=== PATIENT | male | born 1995 | race Caucasian/White ===

== ENCOUNTER 2018-05-30 14:35 | Emergency (ER) | payer OTHER ==
[2018-05-30] MEDS ORDERED: LORAZEPAM 1 MG TABLET PO ONE (15:07)
--- NOTE | 2018-05-30 15:07 | ER Document Report ---
ED Psych Disorder / Suicide - General Chief Complaint: Suicidal Ideation Stated Complaint: SUICIDAL IDEATION Time Seen by Provider: 05/30/18 14:54 Notes: Chief complaint: Suicidal History of complain:( obtained from----patient) 23 years old male presents today with suicidal ideation and depression. Suffering from a week. Broke up with his girlfriend and started to feel depressed and everything else around him was going downhill. He was feeling that there is no worth living anymore. He was thinking of many ways, but did not have any definite plan. Onset: Gradual Duration: About a week Severity: Severe Quality: Suicidal Context: Breakup with girlfriend Exacerbating factor and relieving factors: None REVIEW OF SYSTEMS: CONSTITUTIONAL : Denies fever, chills, or sweats. Denies recent illness. EENT: Denies eye, ear, throat, or mouth pain or symptoms. Denies nasal or sinus congestion or discharge. Denies throat, tongue, or mouth swelling or difficulty swallowing. CARDIOVASCULAR: Denies chest pain. Denies palpitations or racing or irregular heart beat. Denies ankle edema. RESPIRATORY: Denies cough, cold, or chest congestion. Denies shortness of breath, difficulty breathing, or wheezing. GASTROINTESTINAL: Denies distention. Denies nausea, vomiting, or diarrhea. Denies blood in vomitus, stools, or per rectum. Denies black, tarry stools. Denies constipation. GENITOURINARY: Denies difficulty urinating, painful urination, burning, frequency, blood in urine, or discharge. FEMALE GENITOURINARY: Denies vaginal bleeding, heavy or abnormal periods, irregular periods. Denies vaginal discharge or odor. MUSCULOSKELETAL: Denies back or neck pain or stiffness. Denies joint pain or swelling. SKIN: Denies rash, lesions or sores. HEMATOLOGIC : Denies easy bruising or bleeding. LYMPHATIC: Denies swollen, enlarged glands. NEUROLOGICAL: Denies confusion or altered mental status. Denies passing out or loss of consciousness. Denies dizziness or lightheadedness. Denies headache. Denies weakness or paralysis or loss of use of either side. Denies problems with gait or speech. Denies sensory loss, numbness, or tingling. Denies seizures. PSYCHIATRIC: Denies anxiety or stress. Denies depression, suicidal ideation, or homicidal ideation. ALL OTHER SYSTEMS REVIEWED AND NEGATIVE. PHYSICAL EXAMINATION: GENERAL: Well-appearing, well-nourished and in no acute distress. HEAD: Atraumatic, normocephalic. EYES: Pupils equal round and reactive to light, extraocular movements intact, conjunctiva are normal. ENT: Nares patent, oropharynx clear without exudates. Moist mucous membranes. NECK: Normal range of motion, supple without lymphadenopathy LUNGS: Breath sounds clear to auscultation bilaterally and equal. No wheezes rales or rhonchi. HEART: Regular rate and rhythm without murmurs ABDOMEN: Soft, nontender, nondistended abdomen. No guarding, no rebound. No masses appreciated. Examination of genitals-deferred Musculoskeletal: Normal range of motion, no pitting or edema. No cyanosis. NEUROLOGICAL: Cranial nerves grossly intact. Normal speech, normal gait. Normal sensory, motor exams PSYCH: Depressed, suicidal, crying SKIN: Warm, Dry, normal turgor, no rashes or lesions noted. Dictation was performed using [employer] voice recognition software TRAVEL OUTSIDE OF THE [place] IN LAST 30 DAYS: No - HPI Notes: Dictated - Related Data Allergies/Adverse Reactions: No Known Allergies Allergy (Verified 05/30/18 14:58) Past Medical History - Social History Smoking Status: Never Smoker Frequency of alcohol use: None Drug Abuse: None Lives with: Alone Family History: Reviewed & Not Pertinent Patient has suicidal ideation: Yes Patient has homicidal ideation: No Renal/ Medical History: Denies: Hx Peritoneal Dialysis Review of Systems - Review of Systems Notes: Dictated Physical Exam - Vital signs Vitals: Temp Pulse Resp BP Pulse Ox 99.5 F 74 16 147/85 H 100 05/30/18 14:42 05/30/18 14:42 05/30/18 14:42 05/30/18 14:42 05/30/18 14:42 - Notes Notes: Dictated Course - Vital Signs Vital signs: Temp Pulse Resp BP Pulse Ox 99.5 F 74 16 147/85 H 100 05/30/18 14:42 05/30/18 14:42 05/30/18 14:42 05/30/18 14:42 05/30/18 14:42 Discharge - Discharge Clinical Impression: Suicidal behavior Qualifiers: Attempted self-injury: without attempted self-injury Qualified Code(s): R46.89 - Other symptoms and signs involving appearance and behavior Depression (emotion) Qualifiers: Depression Type: major depressive disorder Major depression recurrence: single episode Active/Remission status: currently active Major depression episode severity: severe Psychotic features: without psychotic features Qualified Code(s ): F32.2 - Major depressive disorder, single episode, severe without psychotic features
[2018-05-30 16:17] LABS: ABSOLUTE LYMPHOCYTES (AUTO) 1.4 10^3/uL (0.5-4.7); ABSOLUTE MONOCYTES (AUTO) 0.5 10^3/uL (0.1-1.4); BASOPHILS % (AUTO) 0.6 % (0-2); EOSINOPHILS % (AUTO) 0.6 % (0-6); HEMATOCRIT 43.6 % (37.9-51.0); HEMOGLOBIN 15.3 g/dL (13.5-17.0); LYMPHOCYTES % (AUTO) 23.7 % (13-45); MEAN CORPUSCULAR HEMOGLOBIN 29.9 pg (27.0-33.4); MEAN CORPUSCULAR HGB CONC 35.1 g/dL (32.0-36.0); MEAN CORPUSCULAR VOLUME 85 fl (80-97); MONOCYTES % (AUTO) 8.5 % (3-13); PLATELET COUNT 199 10^3/uL (150-450); RED BLOOD COUNT 5.12 10^6/uL (4.35-5.55); RED CELL DISTRIBUTION WIDTH 12.9 % (11.5-14.0); SEGMENTED NEUTROPHILS % (AUTO) 66.6 % (42-78); TOTAL CELLS COUNTED % (AUTO) 100 %
--- NOTE | 2018-05-30 16:20 | ER Document Report ---
ED General - General Chief Complaint: Suicidal Ideation Stated Complaint: SUICIDAL IDEATION Time Seen by Provider: 05/30/18 14:54 TRAVEL OUTSIDE OF THE [place] IN LAST 30 DAYS: No - HPI Notes: Patient is a 23-year-old male with a history of depression who presents to the ED complaining of suicidal ideations over the last 4 days since a breakup with his girlfriend. Patient states that he had suicidal ideations and depression last year, but had been greatly improved until this recent breakup which set him back. Patient states that he has never had any planning and no previous attempts. He has not had any homicidal ideations were planning. He does not have any visual or auditory hallucinations. Patient is in the [employer] He is accompanied today by his father. He has not had any other recent illness. Denies any drug allergies. He has had a decreased p.o. intake over the last several days. No other concerns or complaints at this time. Denies any headache, fever, neck pain, changes in vision/speech/mentation/ hearing, URI, sore throat, chest pain, palpitations, syncope, cough, shortness of breath, wheeze, dyspnea, abdominal pain, nausea/vomiting/diarrhea, urinary retention, dysuria, hematuria, loss of control of bowel or bladder, numbness/ tingling, muscle paralysis/weakness, or rash. - Related Data Allergies/Adverse Reactions: No Known Allergies Allergy (Verified 05/30/18 14:58) Past Medical History - Social History Smoking Status: Never Smoker Frequency of alcohol use: None Drug Abuse: None Lives with: Alone Family History: Reviewed & Not Pertinent Patient has suicidal ideation: Yes Patient has homicidal ideation: No Renal/ Medical History: Denies: Hx Peritoneal Dialysis Review of Systems - Review of Systems -: Yes All other systems reviewed and negative Physical Exam - Vital signs Vitals: Temp Pulse Resp BP Pulse Ox 99.5 F 74 16 147/85 H 100 05/30/18 14:42 05/30/18 14:42 05/30/18 14:42 05/30/18 14:42 05/30/18 14:42 - Notes Notes: PHYSICAL EXAMINATION: GENERAL: Well-appearing, well-nourished and in no acute distress. HEAD: Atraumatic, normocephalic. EYES: Pupils equal round and reactive to light, extraocular movements intact, sclera anicteric, conjunctiva are normal. ENT: Nares patent and without discharge. oropharynx clear without exudates. No tonsilar hypertrophy or erythema. Moist mucous membranes. NECK: Normal range of motion, supple without lymphadenopathy LUNGS: Breath sounds clear to auscultation bilaterally and equal. No wheezes rales or rhonchi. HEART: Regular rate and rhythm without murmurs, rubs, gallops. ABDOMEN: Soft, nontender, nondistended abdomen. No guarding, no rebound. No masses appreciated. Normal bowel sounds present. No CVA tenderness bilaterally. Musculoskeletal: FROM to passive/active. Strength 5+/5. Extremities: No cyanosis, clubbing, or edema b/l. Peripheral pulses 2+. Capillary refill less than 3 seconds. NEUROLOGICAL: Cranial nerves grossly intact. Normal speech, normal gait. Normal sensory, motor exams PSYCH: Normal mood, normal affect. SKIN: Warm, Dry, normal turgor, no rashes or lesions noted. Course - Re-evaluation Re-evalutation: 05/30/18 16:18 Patient is an afebrile, well-hydrated, 23-year-old male who presents to the ED for suicidal ideations without planning. Vitals are acceptable without any significant tachycardia, tachypnea, or hypoxia. PE is otherwise unremarkable. Labs and EKG have been ordered. Patient is tolerating p.o. I difficulties and is nontoxic-appearing. I did review case with our psychology team who will evaluate the patient and will defer IVC at this time until after evaluation. Patient is in agreement with this plan. 05/30/18 18:18 Patient has been cleared by our psychology team and does not meet IVC criteria. They would like him to be placed on BuSpar as well as Celexa with a diagnosis of depression. Other direction per our mental health team. Patient is in agreement with plan. Recheck with your PCM in 3-5 days as well. Return to the ED with any worsening/concerning symptoms otherwise as reviewed in discharge. Patient is in agreement. - Vital Signs Vital signs: Temp Pulse Resp BP Pulse Ox 99.5 F 74 16 147/85 H 100 05/30/18 14:42 05/30/18 14:42 05/30/18 14:42 05/30/18 14:42 05/30/18 14:42 - Laboratory Result Diagrams: 05/30/18 15:30 05/30/18 15:30 Laboratory results interpreted by me: 05/30/18 05/30/18 15:30 15:30 Total Bilirubin 1.8 H ALT 18 L Urine Ketones TRACE H Urine Blood SMALL H Urine Urobilinogen 4.0 H Salicylates < 1.0 L Acetaminophen < 10 L Discharge - Discharge Clinical Impression: Suicidal behavior Qualifiers: Attempted self-injury: without attempted self-injury Qualified Code(s): R46.89 - Other symptoms and signs involving appearance and behavior Depression (emotion) Qualifiers: Depression Type: major depressive disorder Major depression recurrence: single episode Active/Remission status: currently active Major depression episode severity: severe Psychotic features: without psychotic features Qualified Code(s ): F32.2 - Major depressive disorder, single episode, severe without psychotic features Condition: Stable Disposition: HOME, SELF-CARE Instructions: Depression ([facility]) Additional Instructions: Maintain adequate fluid and food intake Take home medications as directed healthy diet Exercise regularly Monitor symptoms for any acute changes Recheck with your PCM in 3-5 days Keep f/u with mental health provider Return to the ED with any worsening symptoms and/or development of fever, headache, chest pain, palpitations, syncope, shortness of breath, trouble breathing, abdominal pain, n/v/d, blood in stool/urine, loss of control of bowel /bladder, urinary retention, muscle weakness/paralysis, numbness/tingling, suicidal/homicidal thoughts/ideations/planning, or other worsening symptoms that are concerning to you. Prescriptions: Buspirone HCl [Buspar 10 mg Tablet] 10 mg PO QHS #7 tablet Citalopram Hydrobromide [Celexa 20 mg Tablet] 20 mg PO DAILY #7 tablet Forms: Elevated Blood Pressure Referrals: [facility] [Provider Group] - Follow up as needed
[2018-05-30 16:27] LABS: ALANINE AMINOTRANSFERASE 18 U/L (21-72); ALKALINE PHOSPHATASE 48 U/L (38-126); ANION GAP 14 (5-19); ASPARTATE AMINO TRANSFERASE 22 U/L (17-59); BILIRUBIN,DIRECT 0.2 mg/dL (0.0-0.4); BILIRUBIN,TOTAL 1.8 mg/dL (0.2-1.3); BLOOD UREA NITROGEN 15 mg/dL (7-20); CALCIUM 9.9 mg/dL (8.4-10.2); CARBON DIOXIDE 29 mmol/L (22-30); CHLORIDE 100 mmol/L (98-107); GLUCOSE 101 mg/dL (75-110); POTASSIUM 3.7 mmol/L (3.6-5.0); SODIUM 143.4 mmol/L (137-145); TOTAL PROTEIN 7.8 g/dL (6.3-8.2)
[2018-05-30 16:28] LABS: ACETAMINOPHEN < 10 ug/mL (10-30); ALCOHOL < 10 mg/dL (NONE DETECTED); APPEARANCE,URINE SLIGHTLY-CLOUDY; BILIRUBIN,URINE NEGATIVE (NEGATIVE); COLOR,URINE AMBER; GLUCOSE, URINE NEGATIVE (NEGATIVE); KETONES,URINE TRACE mg/dL (NEGATIVE); LEUKOCYTE ESTERASE,URINE NEGATIVE (NEGATIVE); NITRITE,URINE NEGATIVE (NEGATIVE); PROTEIN,URINE NEGATIVE (NEGATIVE); SALICYLATE < 1.0 mg/dL (2.0-20.0); URINE SPECIFIC GRAVITY 1.029
[2018-05-30 16:43] LABS: URINE AMPHETAMINES SCREEN NEGATIVE; URINE BARBITURATES SCREEN NEGATIVE; URINE BENZODIAZEPINES SCREEN NEGATIVE; URINE COCAINE SCREEN NEGATIVE; URINE MARIJUANA (THC) SCREEN NEGATIVE; URINE METHADONE SCREEN NEGATIVE; URINE PHENCYCLIDINE SCREEN NEGATIVE
--- NOTE | 2018-05-30 17:48 | PSYCHOLOGICAL NOTE ---
Psych Note - Psych Note Psych Note: Reason for Consult: suicidal ideation 23 years old male presents today with suicidal ideation and depression. Suffering from a week. Broke up with his girlfriend and started to feel depressed and everything else around him was going downhill. He was feeling that there is no worth living anymore. He was thinking of many ways, but did not have any definite plan. Patient disclosed that he is having can increase in depression and started having thoughts of suicide because of "unexpected breakup." Reports that he did have some depression about a year ago however this is the first time is ever had thoughts of hurting himself. He denies ever having outpatient mental health services because he thought he was getting better. Patient denies having any plans; "no...no plan... I thought it would be easier for the pain to go away." Patient disclosed that he already made his first appointment with outpatient services through [facility] services felt bad enough that he did not want to wait. "I feel like I failed everyone." He is able to correctly identify multiple stressors which include dropping out of school and financial. 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 Patient is alert and orientated to person, place, time and circumstance. Mood is dysphoric with tearful affect. Patient endorses passive suicidal ideation i.e. no means or intent. Patient denies homicidal ideation delusions are absent behaviors congruent with an intact reality based presentation i.e. organized and linear thought process. Eye contact is well-maintained. Conversational speech is within normal rate, tone and prosody. Intellectual abilities appear to be within the average range. Attention and concentration are fair. Insight, judgment, impulse control are good as evidenced by setting up outpatient services and then coming into [facility] ED for additional assistance. Medication recommendations per [facility]'s contracted psychiatrist Dr. Ole AGUAYO are as follows Celexa 20 mg daily BuSpar 10 mg nightly 311 (F 3 2.9) unspecified depressive disorder Impression\\plan: Patient is cleared from acute psychiatric services. Patient does not meet IVC criteria per [place] GS 122C. Patient describes passive suicidal ideation (i.e. no plans means or intent) do to breaking up with his significant other. Patient shows strong insight judgment on obtaining outpatient services and seeking help for additional assistance. Patient is recommended to follow-up with his previously scheduled outpatient mental health services. Dr. Estrada was consulted and the care management this patient; attending physician is agreement with recommendations and disposition.
[2018-05-30 19:12] VITALS: BP 135/65
--- NOTE | 2018-05-30 19:26 | EKG REPORT ---
SEVERITY:- NORMAL ECG - SINUS RHYTHM : Confirmed by: Guillaume Handy MD 30-May-2018 19:26:04
== END 2018-05-30 19:12 | disposition home or self-care (01) ==
LOC: ER 14:35
DX: R45.851 Suicidal ideations (principal); R46.89 Other symptoms and signs involving appearance and behavior; F32.2 Major depressive disorder, single episode, severe without psychotic features
CPT/HCPCS: 36415; 80053; 80307; 81001; 85025; 93005; 93010; 99285